=== PATIENT | female | born 1995 | race Caucasian/White ===

== ENCOUNTER 2019-03-08 21:33 | Emergency (ER) | payer OTHER ==
[2019-03-08 22:01] VITALS: BP 121/66
--- NOTE | 2019-03-08 22:25 | UC ---
Abdominal Pain Female HPI - HPI Summary HPI Summary: 2 DAYS OF WORSENING DULL UPPER ABDOMINAL PAIN. HAS A HISTORY OF ULCERATIVE COLITIS AND IS CURRENTLY IN AN ACUTE FLARE. STARTED BUDESONIDE 2 DAYS AGO. NO BLOODY DIARRHEA. PATIENT IS VISIBLY UNCOMFORTABLE. DENIES ANY FEVER OR VOMITING BUT DOES HAVE SOME INTERMITTENT NAUSEA. STATES THAT WHEN SHE EATS SHE FEELS BETTER FOR A VERY SHORT PERIOD OF TIME BUT THEN THE PAIN QUICKLY RETURNS. IS FOLLOWED BY DR. DEANA OLIVAS WITH GI AT [place]. - History of Current Complaint Chief Complaint: UCAbdominalPain Stated Complaint: STOMACH ACHE Time Seen by Provider: 03/08/19 21:48 Hx Obtained From: Patient Hx Last Menstrual Period: 3 weeks ago Onset/Duration: Gradual Onset, Lasting Days, Still Present Timing: Constant Severity Initially: Mild Severity Currently: Moderate Pain Intensity: 7 Pain Scale Used: 0-10 Numeric Location: Diffuse Radiates: No Character: Dull Aggravating Factor(s): Nothing Alleviating Factor(s): Nothing Associated Signs and Symptoms: Positive: Decreased Appetite, Nausea, Diarrhea. Negative: Fever, Back Pain, Blood in Stool, Urinary Symptoms, Vomiting Allergies/Adverse Reactions: Allergies Allergy/AdvReac Type Severity Reaction Status Date / Time No Known Allergies Allergy Verified 03/08/19 22:01 Home Medications: Home Medications Budesonide CAP(NF) 9 mg PO DAILY 03/08/19 [History Confirmed 03/08/19] Mesalamine (NF) [Apriso (NF)] 0.375 gm PO TID 03/08/19 [History Confirmed ] PMH/Surg Hx/FS Hx/Imm Hx Other GI/ History: ULCERATIVE COLITIS - Surgical History Surgery Procedure, Year, and Place: wisdom teeth - Social History Alcohol Use: Occasionally Substance Use Type: None Smoking Status (MU): Never Smoked Tobacco Review of Systems All Other Systems Reviewed And Are Negative: Yes Constitutional: Positive: Negative Skin: Positive: Negative Respiratory: Positive: Negative Cardiovascular: Positive: Negative Gastrointestinal: Positive: Abdominal Pain, Diarrhea, Nausea Genitourinary: Positive: Negative Physical Exam Triage Information Reviewed: Yes Appearance: Pain Distress - MODERATE, Thin Vital Signs: Initial Vital Signs Temp 100.4 F 03/08/19 21:51 Pulse 123 03/08/19 21:51 Resp 17 03/08/19 21:51 BP 121/66 03/08/19 21:51 Pulse Ox 100 03/08/19 21:51 Vital Signs Reviewed: Yes Eyes: Positive: Conjunctiva Clear ENT: Positive: Hearing grossly normal Neck: Positive: Supple Respiratory Exam: Normal Cardiovascular: Positive: Tachycardia Abdomen Description: Positive: Nontender, Soft. Negative: CVA Tenderness (R), CVA Tenderness (L), Distended, Guarding Bowel Sounds: Positive: Present Musculoskeletal: Positive: No Edema Neurological: Positive: Alert Psychological: Positive: Age Appropriate Behavior Skin: Negative: Rashes Abd Pain Female Course/Dx - Course Course Of Treatment: PATIENT PRESENTS WITH WORSENING DULL UPPER ABDOMINAL PAIN IN THE SETTING OF AN ACUTE FLARE OF ULCERATIVE COLITIS. PATIENT IS VISIBLY UNCOMFORTABLE THE UC. IS TACHYCARDIC WITH A LOW GRADE TEMP. SHE REQUIRES A HIGHER LEVEL OF CARE THAN WHAT IS AVAILABLE HERE. [place] [facility] [place] [facility]. PT OFFERED TRANSPORT TO THE ED BY AMBULANCE BUT DECLINES. ADVISED THAT BY NOT TRAVELING IN A MONITORED SETTING SHE COULD BE RISKING WORSENING OF HER CONDITION THAT COULD POSE A THREAT TO HER LIFE, HEALTH AND MEDICAL SAFETY. SHE VERBALIZES UNDERSTANDING AND CONTINUES TO DECLINE AMBULANCE TRANSFER. - Differential Dx/Diagnosis Provider Diagnosis: Upper abdominal pain Discharge - Sign-Out/Discharge Documenting (check all that apply): Patient Departure All imaging exams completed and their final reports reviewed: No Studies - Discharge Plan Condition: Stable Disposition: TRANS HIGHER L OF CARE FAC Patient Education Materials: Ulcerative Colitis (ED), Abdominal Pain (ED) Referrals: Mari Mead MD [Primary Care Provider] - If Needed Deana Olivas MD [Medical Doctor] - 1 Day Additional Instructions: GO DIRECT[place] [facility] [place] FOR FURTHER EVALUATION. YOU HAVE DECLINED TRANSFER TO THE ED BY AMBULANCE. BE ADVISED THAT BY NOT TRAVELING IN A MONITORED SETTING YOU COULD BE RISKING WORSENING OF YOUR CONDITION THAT COULD POSE A THREAT TO YOUR LIFE, HEALTH AND MEDICAL SAFETY. - Billing Disposition and Condition Condition: STABLE Disposition: Trans Higher Lvl of Care Fac
== END 2019-03-08 22:27 | disposition short-term general hospital (02) ==
LOC: UCEAST 21:33
DX: R10.10 Upper abdominal pain, unspecified (principal)
CPT/HCPCS: 99203; G0463

== ENCOUNTER 2019-03-08 22:39 | Inpatient (IN) | payer OTHER ==
[2019-03-09] MEDS ORDERED: Morphine 4 MG/ML VIAL (1 ml) 4 MG/ML VIAL IV ONE (02:01)
[2019-03-09] MEDS ORDERED: NS 0.9% 1000 ML** 1,000 ML IV ONE (02:01)
[2019-03-09] MEDS ORDERED: Metoclopramide IV* 5 MG/ML 2 ML VIAL IV SLOW PU ONE (02:02)
[2019-03-09] MEDS ORDERED: Pantoprazole IV* 40 MG IV ONE (02:02)
[2019-03-09 02:19] LABS: Urine Appearance Cloudy; Urine Bacteria Absent (Absent); Urine Bilirubin Negative (Negative); Urine Blood Negative (Negative); Urine Color Yellow; Urine Glucose Negative (Negative); Urine Ketones 1+ (Negative); Urine Nitrite Negative (Negative); Urine Protein Negative (Negative); Urine Red Blood Cell Absent (Absent); Urine Specific Gravity 1.014 (1.010-1.030); Urine Squamous Epithelial Cell Present (Absent); Urine Urobilinogen Negative (Negative); Urine White Blood Cell 3+(>20/hpf) (Absent)
[2019-03-09 02:30] LABS: ABS Basophils 0.1 10^3/ul (0-0.2); ABS Eosinophils 0.4 10^3/ul (0-0.6); ABS Lymphocytes 2.2 10^3/ul (1.0-4.8); ABS Monocytes 1.4 10^3/ul (0-0.8); ABS Neutrophils 8.7 10^3/ul (1.5-7.7); Hematocrit 36 % (35-47); Hemoglobin 11.8 g/dL (12.0-16.0); Lymphocyte % 17.3 %; Mean Corpuscular HGB Conc 33 g/dL (31-36); Mean Corpuscular Hemoglobin 27 pg (27-31); Mean Corpuscular Volume 83 fL (80-97); Mean Platelet Volume 6.6 fL (7.4-10.4); Platelet Count 496 10^3/uL (150-450); Red Blood Count 4.32 10^6 /uL (3.70-4.87); Red Cell Distribution Width 13 % (10-15); White Blood Count 12.8 10^3/uL (3.5-10.8)
[2019-03-09 02:42] LABS: ALT 9 U/L (7-52); AST 12 U/L (13-39); Albumin/Globulin Ratio 1.3 (1-3); Alkaline Phosphatase 84 U/L (34-104); Anion Gap 9 mmol/L (2-11); BUN/Creatinine Ratio 10.2 (8-20); Blood Urea Nitrogen 6 mg/dL (6-24); C Reactive Protein 7.52 mg/L (<8.01); CO2 Carbon Dioxide 23 mmol/L (22-32); Calcium 9.2 mg/dL (8.6-10.3); Chloride 104 mmol/L (101-111); EGFR African American 151.5 (>60); EGFR Non-African American 125.2 (>60); Globulin 3.2 g/dL (2-4); Glucose 123 mg/dL (70-100); Magnesium 2.1 mg/dL (1.9-2.7); Potassium 3.7 mmol/L (3.5-5.0); Sodium 136 mmol/L (135-145); Total Protein 7.2 g/dL (6.4-8.9)
[2019-03-09] MEDS ORDERED: Iohexol 300* (CONTRAST) 10 ML SDV IV ONE (02:45)
[2019-03-09 02:49] LABS: HCG Pregnancy < 0.60 mIU/mL
[2019-03-09 04:09] LABS: Amylase 156 U/L (29-103)
[2019-03-09] MEDS ORDERED: Morphine INJ* 2 MG/ML 1 ML SYRINGE (TWO MG - NEW SYRINGE VERSION) IV PRN (05:30)
[2019-03-09] MEDS ORDERED: Ondansetron INJ* 2 MG/ML VIAL IV PRN (05:30)
[2019-03-09 05:49] LABS: Triglycerides 42 mg/dL
--- NOTE | 2019-03-09 06:13 | ED ---
Abdominal Pain/Female - HPI Summary HPI Summary: Patient is a 23 y/o F w/ PMHx of ulcerative colitis presenting to ED with complaints of epigastric pain for the past two days. She states that she had a flair-up of her ulcerative colitis this past week. She was evaluated by Dr. Deana Lockett at [facility], who prescribed her mesalamine to take for a month. She notes that she had previously taken prednisone for her ulcerative colitis. She is concerned that the mesalamine is causing her present abdominal pain. She notes some episodes of diarrhea with blood but denies fever. Intermittent nausea is endorsed. Patient denies PSHx. On triage, pain is rated 7/10, nothing is noted to aggravate/alleviate Sx. Home medications and allergies are reviewed. - History of Current Complaint Chief Complaint: EDAbdPain Stated Complaint: ABD PAIN PER PT Time Seen by Provider: 03/09/19 01:46 Hx Obtained From: Patient Hx Last Menstrual Period: 3 weeks ago Onset/Duration: Lasting Days - TWO, Still Present Timing: Days - TWO Severity Currently: Severe Pain Intensity: 7 Pain Scale Used: 0-10 Numeric Location: Epigastric Aggravating Factor(s): Nothing Alleviating Factor(s): Nothing Associated Signs and Symptoms: Positive: Nausea, Diarrhea. Negative: Fever Allergies/Adverse Reactions: Allergies Allergy/AdvReac Type Severity Reaction Status Date / Time No Known Allergies Allergy Verified 03/08/19 22:42 PMH/Surg Hx/FS Hx/Imm Hx Endocrine/Hematology History: Denies: Hx Diabetes, Hx Thyroid Disease Cardiovascular History: Denies: Hx Hypertension Respiratory History: Denies: Hx Asthma, Hx Chronic Obstructive Pulmonary Disease (COPD) GI History: Reports: Other GI Disorders - ULCERATIVE COLITIS - Surgical History Surgery Procedure, Year, and Place: wisdom teeth - Immunization History Immunizations Up to Date: Yes Infectious Disease History: No Infectious Disease History: Reports: Traveled Outside the [place] in Last 30 Days Denies: Hx Hepatitis, Hx Human Immunodeficiency Virus (HIV) - Family History Known Family History: Negative: Diabetes - Social History Alcohol Use: Occasionally Substance Use Type: Reports: None Smoking Status (MU): Never Smoked Tobacco Review of Systems Negative: Fever Positive: Abdominal Pain, Diarrhea, Nausea All Other Systems Reviewed And Are Negative: Yes Physical Exam - Summary Physical Exam Summary: VITAL SIGNS: Reviewed. GENERAL: Patient is a well-developed and nourished FEMALE who is lying comfortable in the stretcher. Patient is not in any acute respiratory distress. HEAD AND FACE: No signs of trauma. No ecchymosis, hematomas or skull depressions. No sinus tenderness. EYES: PERRLA, EOMI x 2, No injected conjunctiva, no nystagmus. EARS: Hearing grossly intact. Ear canals and tympanic membranes are within normal limits. MOUTH: Oropharynx within normal limits. NECK: Supple, trachea is midline, no adenopathy, no JVD, no carotid bruit, no c- spine tenderness, neck with full ROM CHEST: Symmetric, no tenderness at palpation LUNGS: Clear to auscultation bilaterally. No wheezing or crackles. CVS: Regular rate and rhythm, S1 and S2 present, no murmurs or gallops appreciated. ABDOMEN: Soft, non-tender. No signs of distention. No rebound no guarding, and no masses palpated. Bowel sounds are hyperactive. EXTREMITIES: FROM in all major joints, no edema, no cyanosis or clubbing. NEURO: Alert and oriented x 3. No acute neurological deficits. Speech is normal and follows commands. SKIN: Dry and warm Triage Information Reviewed: Yes Vital Signs On Initial Exam: Initial Vitals Temp Pulse Resp BP Pulse Ox 99 F 119 16 118/75 100 03/08/19 22:40 03/08/19 22:40 03/08/19 22:40 03/08/19 22:40 03/08/19 22:40 Vital Signs Reviewed: Yes Diagnostics - Vital Signs Vital Signs Temp Pulse Resp BP Pulse Ox 03/09/19 05:05 98 125/70 97 03/09/19 05:00 96 97 03/09/19 04:35 102 119/63 99 03/09/19 04:05 98 112/57 99 03/09/19 04:00 127 97 03/09/19 03:35 99 115/54 99 03/09/19 03:05 105 128/75 100 03/09/19 02:19 16 03/09/19 00:55 99 F 100 22 121/66 100 03/08/19 22:40 99 F 119 16 118/75 100 - Laboratory Lab Results: Lab Results 03/09/19 03/09/19 03/09/19 Range/Units 01:40 02:18 02:18 WBC 12.8 H (3.5-10.8) 10^3/uL RBC 4.32 (3.70-4.87) 10^6 /uL Hgb 11.8 L (12.0-16.0) g/dL Hct 36 (35-47) % MCV 83 (80-97) fL MCH 27 (27-31) pg MCHC 33 (31-36) g/dL RDW 13 (10-15) % Plt Count 496 H (150-450) 10^3/uL MPV 6.6 L (7.4-10.4) fL Neut % (Auto) 68.4 % Lymph % (Auto) 17.3 % [place] % (Auto) 10.7 % Eos % (Auto) 3.0 % Baso % (Auto) 0.6 % Absolute Neuts (auto) 8.7 H (1.5-7.7) 10^3/ul Absolute Lymphs (auto) 2.2 (1.0-4.8) 10^3/ul Absolute Monos (auto) 1.4 H (0-0.8) 10^3/ul Absolute Eos (auto) 0.4 (0-0.6) 10^3/ul Absolute Basos (auto) 0.1 (0-0.2) 10^3/ul Absolute Nucleated RBC 0.0 10^3/ul Nucleated RBC % 0.0 Sodium 136 (135-145) mmol/L Potassium 3.7 (3.5-5.0) mmol/L Chloride 104 (101-111) mmol/L Carbon Dioxide 23 (22-32) mmol/L Anion Gap 9 (2-11) mmol/L BUN 6 (6-24) mg/dL Creatinine 0.59 (0.51-0.95) mg/dL Est GFR ( Amer) 151.5 (>60) Est GFR (Non-Af Amer) 125.2 (>60) BUN/Creatinine Ratio 10.2 (8-20) Glucose 123 H (70-100) mg/dL Calcium 9.2 (8.6-10.3) mg/dL Magnesium 2.1 (1.9-2.7) mg/dL Total Bilirubin 0.30 (0.2-1.0) mg/dL AST 12 L (13-39) U/L ALT 9 (7-52) U/L Alkaline Phosphatase 84 (34-104) U/L C-Reactive Protein 7.52 (<8.01) mg/L Total Protein 7.2 (6.4-8.9) g/dL Albumin 4.0 (3.2-5.2) g/dL Globulin 3.2 (2-4) g/dL Albumin/Globulin Ratio 1.3 (1-3) Triglycerides 42 mg/dL Amylase 156 H (29-103) U/L Lipase 949 H (11.0-82.0) U/L Beta HCG, Quant < 0.60 mIU/mL Urine Color Yellow Urine Appearance Cloudy Urine pH 5.0 (5-9) Ur Specific [place] 1.014 (1.010-1.030) Urine Protein Negative (Negative) Urine Ketones 1+ A (Negative) Urine Blood Negative (Negative) Urine Nitrate Negative (Negative) Urine Bilirubin Negative (Negative) Urine Urobilinogen Negative (Negative) Ur Leukocyte Esterase 3+ A (Negative) Urine WBC (Auto) 3+(>20/hpf) A (Absent) Urine RBC (Auto) Absent (Absent) Ur Squamous Epith Cells Present A (Absent) Urine Bacteria Absent (Absent) Urine Glucose Negative (Negative) Result Diagrams: 03/09/19 02:18 03/09/19 02:18 Lab Statement: Any lab studies that have been ordered have been reviewed, and results considered in the medical decision making process. - CT ABD/PEL CT CT Interpretation Completed By: Radiologist Summary of CT Findings: IMPRESSION: 1. Nonspecific findings in the abdomen. Motion artifact in the area the. pancreas which causes blurring of the pancreatic margins with some increase. density to the peripancreatic soft tissues. No walled off fluid collection is. seen. This could represent early pancreatitis. Suggest obtaining a lipase level. for correlation. 2. The distal transverse colon and proximal descending colon are collapsed with some thickening of the wall. This is a nonspecific finding but could represent. an early colitis. There is however no significant mesenteric inflammation. The. colon proximal and distal to this site are normal. 3. The appendix is visualized and is normal in appearance. 4. The uterus is displaced to the right of midline. No adnexal mass is. observed. No significant fluid collection within the pelvis is noted. THIS REPORT WAS REVIEWED BY DR. PEREZ Abdominal Pain Fem Course/Dx - Course Course Of Treatment: Patient is a 23 y/o F w/ PMHx of ulcerative colitis presenting to ED with complaints of epigastric pain for the past two days. She states that she had a flair-up of her ulcerative colitis this past week. She was evaluated by Dr. Deana Lokcett at [facility], who prescribed her mesalamine to take for a month. She notes that she had previously taken prednisone for her ulcerative colitis. She is concerned that the mesalamine is causing her present abdominal pain. She notes some episodes of diarrhea with blood but denies fever. Intermittent nausea is endorsed. Patient denies PSHx. On physical exam, hyperactive bowel sounds are noted. Labs showed WBC 12.8, Hgb 11.8, Plt count 496, MPV 6.6, absolute neuts 8.7, absolute monos 1.4, glucose 123, AST 12, amylase 156, lipase 949, triglycerides 42, beta HCG < 0.60. UA showed 1+ ketones , 3+ leukocyte and WBC, squamous epith cells present. CT ABD/PEL IMPRESSION: 1. Nonspecific findings in the abdomen. Motion artifact in the area the. pancreas which causes blurring of the pancreatic margins with some increase. density to the peripancreatic soft tissues. No walled off fluid collection is. seen. This could represent early pancreatitis. Suggest obtaining a lipase level. for correlation. 2. The distal transverse colon and proximal descending colon are collapsed with some thickening of the wall. This is a nonspecific finding but could represent. an early colitis. There is however no significant mesenteric inflammation. The. colon proximal and distal to this site are normal. 3. The appendix is visualized and is normal in appearance. 4. The uterus is displaced to the right of midline. No adnexal mass is. observed. No significant fluid collection within the pelvis is noted. During ED course, patient received fluids, protonix 40 mg IV, morphine 4 mg IV and reglan 10 mg IV. 0359 - Patient's case was discussed with Dr. Malcolm, Dr. Malcolm accepts for admission. - Diagnoses Provider Diagnoses: Acute pancreatitis - Provider Notifications Discussed Care Of Patient With: Daisy Malcolm Time Discussed With Above Provider: 03:59 Instructed by Provider To: Other - 0359 - Patient's case was discussed with Dr. Malcolm, Dr. Malcolm accepts for admission. Discharge - Sign-Out/Discharge Documenting (check all that apply): Patient Departure - admit All imaging exams completed and their final reports reviewed: Yes Patient Received Moderate/Deep Sedation with Procedure: No - Discharge Plan Condition: Fair Disposition: ADMITTED TO [facility] - Attestation Statements Document Initiated by Scribe: Yes Documenting Scribe: WANDA WEBER Provider For Whom Scribe is Documenting (Include Credential): JOHNSON PEREZ MD Scribe Attestation: IWANDA, scribed for JOHNSON PEREZ MD on 03/09/19 at 0617. Status of Scribe Document: Ready
--- NOTE | 2019-03-09 09:31 | HP ---
CC: Dr. Mead; Dr. Lockett; Dr. Jones; Dr. Rodney.* HISTORY AND PHYSICAL: DATE OF ADMISSION: 03/09/19 PRIMARY CARE PROVIDER: Dr. Mead. DOUBLE END [facility]ONER OPERATOR: Dr. Lockett from [facility]. CHIEF COMPLAINT: Epigastric pain. HISTORY OF PRESENT ILLNESS: Rina Brownlee is a 23-year-old female with history of ulcerative colitis, who has had recent exacerbation, during which she stated that she lost 10 pounds and was started on budesonide within the past week. The patient stated that in the past 2 days she has been having epigastric pain that is different from her chronic ulcerative colitis pain. She denies any nausea or vomiting. Her bowels had been normalizing since she has been on budesonide, but before she started budesonide she had been having 3 to 4 loose bowel movements a day with some blood in them. The patient's evaluation in the ED yielded lipase of nearly [address] showing an abnormality questionable for pancreatitis. She is going to be placed on observation with the diagnosis of acute pancreatitis. PAST MEDICAL HISTORY: History of ulcerative colitis, diagnosed in August 2018. The patient has been on mesalamine since then, budesonide for the past several days. MEDICATIONS AT HOME: Include: 1. Mesalamine 0.375 mg 3 times a day. 2. Budesonide 9 mg p.o. daily. ALLERGIES: No known drug allergies. FAMILY HISTORY: Positive for colon cancer in maternal grandmother. Father and mother are healthy. SOCIAL HISTORY: The patient lives with her boyfriend. Her surrogate is her mother who lives in [place], [place]. Arielle Moran, home phone number is . The patient denies any tobacco, alcohol, or drug use. REVIEW OF SYSTEMS: Please see history of present illness. All the remaining 12 systems were reviewed with the patient and were otherwise negative. PHYSICAL EXAMINATION GENERAL: The patient is a pleasant 23-year-old female who is in no acute distress. Alert, awake, and oriented x3. VITAL SIGNS: Blood pressure 112/57, heart rate of 98 and regular, respiratory rate 16, oxygen saturation 99% on room air, and temperature 99.0. HEENT: Head: Atraumatic, normocephalic. Eyes: Pupils are equal, reactive to light and accommodation. Oropharynx: Clear. Mucosa moist. NECK: Supple. No JVD. No bruits bilaterally. RESPIRATORY: Clear to auscultation bilaterally. CARDIOVASCULAR: Regular rate and rhythm. No murmur. ABDOMEN: Soft, nontender. Bowel sounds are present in all 4 quadrants. EXTREMITIES: No edema. Pulses are +2 bilaterally. No clubbing or cyanosis. NEURO EVALUATION: Speech clear. Cranial nerves II through XII grossly intact. Motor strength is 5/5 bilaterally. SKIN: No ecchymotic areas or rashes noted. DIAGNOSTIC STUDIES/LAB DATA: Sodium of 136, potassium 3.7, chloride 104, carbon dioxide 23, BUN 16, creatinine 0.59. Liver function test unremarkable and amylase of 156 and lipase of 949. Beta HCG levels undetectable. Triglycerides are pending. CBC: White blood cell count of 2.8, hemoglobin 11.9 , hematocrit 36, and platelets of 496. The patient's CT of abdomen and pelvis, impression: "No specific findings of the abdomen. Motion artifact in the area of pancreas, which causes blurring of the pancreatic margins with some increased density of the peripancreatic soft tissues. No walled-off fluid collection is seen. This could represent early pancreatitis. Suggest obtaining a lipase level for correlation. The distal transverse colon and proximal distending colon are collapsed with some thickening of the wall. This is a nonspecific finding, but could represent early colitis. There is, however, no significant mesenteric inflammation. The colon more proximally and distally to this side are normal. The appendix is visualized and is normal in appearance. to the right of midline. No adnexal mass is observed. No suggestion of fluid collection within the pelvis noted." ASSESSMENT AND PLAN: 1. Acute pancreatitis in the patient with history of ulcerative colitis. For the time being, the patient's p.o. medications are going to be held and she is going to be treated conservatively with ice chips only diet, intravenous fluids , and bowel rest. I already spoke with Dr. Rodney who will refer the patient to Dr. Jones during the day to see the patient in consultation. To further evaluate the etiology for pancreatitis, triglyceride level is going to be obtained and we will obtain a gallbladder ultrasound to evaluate for sludge or non-CT visualized stone. 2. For DVT prophylaxis, the patient is going to be placed on ambulation and she is otherwise low risk. TIME SPENT: Approximately 55 minutes were spent on admission of this patient, more than half of that time was spent [id number] with the patient during the interview and physical exam. [id number]/[facility] #: [id number] MAHESH
[2019-03-09] MEDS: Famotidine IV* 10 MG/ML 2 ML (20 mg) IV SLOW PU SCH ×2 (10:09→22:54)
[2019-03-09] MEDS: D5LR 20 MEQ KCL 1000 ML BAG* 1,000 ML IV SCH (16:47)
[2019-03-09] MEDS: Acetaminophen TAB* 325 MG PO PRN ×2 (16:47→23:28)
--- NOTE | 2019-03-09 18:19 | CONS ---
CC: Dr. Malcolm; Dr Deana Lockett at [facility] * CONSULTATION REPORT: DATE OF CONSULT: 03/09/19 REQUESTING PHYSICIAN: Dr. Malcolm. HISTORY OF PRESENT ILLNESS: Ms. Brownlee is a very pleasant 23-year-old female who was diagnosed with ulcerative pancolitis in the fall of last year. She was originally started on prednisone and mesalamine and did do well. She was weaned off the prednisone and only continued on mesalamine until approximately 3 to 4 days ago. She has been having a flare in the past week and had seen Dr. Lockett who started her on budesonide. Approximately 3 days later, she developed a severe abdominal pain, was located in the epigastric area. She felt that this was much different than her typical ulcerative colitis pain. She did have slight nausea, no vomiting. Her UC symptoms have actually been getting a little bit better on the budesonide. The bleeding had resolved. Given the severity of the pain and the change in its quality and nature, she did present to the emergency room. She denied any fevers or chills. She did have a CT, which showed possible pancreatitis and blood work, which revealed lipase of approximately 1000. She was admitted to the hospital with a diagnosis of pancreatitis. Currently, she is feeling better, but not 100% better. She states she feels about 50% better at this time. PAST MEDICAL HISTORY: Ulcerative colitis diagnosed the end of 2018. MEDICATIONS: Includes: 1. Apriso 0.375 mg 3 times a day. 2. Budesonide 9 mg a day. ALLERGIES: None. FAMILY HISTORY: Grandmother with colorectal cancer. SOCIAL HISTORY: She denies any tobacco, alcohol or IV drugs. REVIEW OF SYSTEMS: A 12-systems were reviewed with the patient and other than that mentioned in the HPI were unremarkable. PHYSICAL EXAM: Temperature is 97.6, blood pressure is 114/56, pulse of 93, respiratory rate of 16, and O2 sats of 100% on room air. General: Well appearing young female in no apparent distress, appears her stated age. Alert, oriented, pleasant, fluent. HEENT: Mucous membranes are moist without lesions , ulcers or exudate. Neck is supple. Trachea is midline. Dentition is intact. No scleral icterus. No pale conjunctivae. Heart: Regular rate and rhythm. No murmurs. Lungs are clear to auscultation bilaterally. No wheezes, rales, or rhonchi. Abdomen: Positive bowel sounds. Very mild epigastric tenderness. No rebound, no guarding, no masses were felt. Skin: Warm and dry. DIAGNOSTIC STUDIES/LAB DATA: Of note, white is 12.8, hemoglobin is 11.8, platelet count of 496. Chemistry shows glucose of 123. AST is 12, amylase is 156, lipase is 949. She has a gallbladder ultrasound which shows no cholelithiasis or biliary ductal dilatation. She also has a CT, which shows increased density in the peripancreatic soft tissues, potentially representing early pancreatitis. ASSESSMENT AND PLAN: This is a very pleasant 23-year-old female with and a diagnosis of ulcerative colitis. The patient's with are at increased risk of ulcerative colitis more often then not related to their medications. Mesalamine has been implicated in the past; however, she has been on it since July or August of 2017. I doubt that the causative factor. Budesonide also can cause as a very low likelihood, but there are reports of pancreatitis induced budesonide. Given the temporal relationship, I think that is the most likely cause. She denies any alcohol, does not appear to be any stones. We are checking her triglyceride just to be certain she denies any trauma. Actually, her triglycerides were normal. There is no family history of pancreatitis, this could be a viral pancreatitis. I would recommend recheck a serum IgG4 just to be certain. If she continues to improve, she can likely be discharged to home tomorrow. She should follow with her regular [facility] spout tender to discuss some other medication to be used for her ulcerative colitis. [id number]/[facility] #: [id number] [facility]
--- NOTE | 2019-03-09 19:41 | PN ---
Subjective Date of Service: 03/09/19 Interval History: Patient reports her pain is far improved this morning per nursing. Diet advanced to clear liquid, patient reports some increased upper abdominal pain after eating at time of evaluation. Denies fever/chills, chest pain, difficulty breathing, nausea/vomiting. Had a bowel movement that was non-bloody, but was mucous-filled. Objective Active Medications: Acetaminophen (Tylenol Tab*) 650 mg PO Q6H PRN PRN Reason: PAIN Last Admin: 03/09/19 16:47 Dose: 650 mg Famotidine (Pepcid Iv*) 20 mg IV SLOW PU BID [facility] Last Admin: 03/09/19 10:09 Dose: 20 mg Potassium Cl/Dextrose/Lact Ringer's (D5lr 20 Meq Kcl 1000 Ml Bag*) 1,000 mls @ 100 mls/hr IV PER RATE [facility] Last Admin: 03/09/19 16:47 Dose: 100 mls/hr Morphine Sulfate (Morphine Inj (Syringe))*) 1 mg IV Q4H PRN PRN Reason: PAIN - MILD Ondansetron HCl (Zofran Inj*) 4 mg IV Q4H PRN PRN Reason: NAUSEA/VOMITING Oxycodone HCl (Roxycodone Tab*) 5 mg PO Q4H PRN PRN Reason: PAIN - MODERATE Vital Signs - 8 hr 03/09/19 15:09 Temperature 98.7 F Pulse Rate 94 Respiratory 16 Rate Blood Pressure 110/68 (mmHg) O2 Sat by Pulse 99 Oximetry Oxygen Devices in Use Now: None Appearance: Thin, young white female laying in hospital bed appearing in NAD Eyes: No Scleral Icterus, PERRLA Ears/Nose/Mouth/Throat: Mucous Membranes Moist Neck: NL Appearance and Movements; NL JVP Respiratory: Symmetrical Chest Expansion and Respiratory Effort, Clear to Auscultation Cardiovascular: NL Sounds; No Murmurs; No JVD, RRR Abdominal: No Hepatosplenomegaly, - - normoactive BS x4 quadrants; no tenderness with palpation superficially or deeply; abd soft, nontender, nondistended Extremities: No Edema, No Clubbing, Cyanosis Skin: No Rash or Ulcers Neurological: Alert and Oriented x 3, NL Muscle Strength and Tone Result Diagrams: 03/09/19 02:18 03/09/19 02:18 Additional Lab and Data: Lab Results 06/03/09/19 03/09/19 Range/Units 01:40 02:18 02:18 WBC 12.8 H (3.5-10.8) 10^3/uL RBC 4.32 (3.70-4.87) 10^6 /uL Hgb 11.8 L (12.0-16.0) g/dL Hct 36 (35-47) % MCV 83 (80-97) fL MCH 27 (27-31) pg MCHC 33 (31-36) g/dL RDW 13 (10-15) % Plt Count 496 H (150-450) 10^3/uL MPV 6.6 L (7.4-10.4) fL Neut % (Auto) 68.4 % Lymph % (Auto) 17.3 % [place] % (Auto) 10.7 % Eos % (Auto) 3.0 % Baso % (Auto) 0.6 % Absolute Neuts (auto) 8.7 H (1.5-7.7) 10^3/ul Absolute Lymphs (auto) 2.2 (1.0-4.8) 10^3/ul Absolute Monos (auto) 1.4 H (0-0.8) 10^3/ul Absolute Eos (auto) 0.4 (0-0.6) 10^3/ul Absolute Basos (auto) 0.1 (0-0.2) 10^3/ul Absolute Nucleated RBC 0.0 10^3/ul Nucleated RBC % 0.0 Sodium 136 (135-145) mmol/L Potassium 3.7 (3.5-5.0) mmol/L Chloride 104 (101-111) mmol/L Carbon Dioxide 23 (22-32) mmol/L Anion Gap 9 (2-11) mmol/L BUN 6 (6-24) mg/dL Creatinine 0.59 (0.51-0.95) mg/dL Est GFR ( Amer) 151.5 (>60) Est GFR (Non-Af Amer) 125.2 (>60) BUN/Creatinine Ratio 10.2 (8-20) Glucose 123 H (70-100) mg/dL Calcium 9.2 (8.6-10.3) mg/dL Magnesium 2.1 (1.9-2.7) mg/dL Total Bilirubin 0.30 (0.2-1.0) mg/dL AST 12 L (13-39) U/L ALT 9 (7-52) U/L Alkaline Phosphatase 84 (34-104) U/L C-Reactive Protein 7.52 (<8.01) mg/L Total Protein 7.2 (6.4-8.9) g/dL Albumin 4.0 (3.2-5.2) g/dL Globulin 3.2 (2-4) g/dL Albumin/Globulin Ratio 1.3 (1-3) Triglycerides 42 mg/dL Amylase 156 H (29-103) U/L Lipase 949 H (11.0-82.0) U/L Beta HCG, Quant < 0.60 mIU/mL Urine Color Yellow Urine Appearance Cloudy Urine pH 5.0 (5-9) Ur Specific [place] 1.014 (1.010-1.030) Urine Protein Negative (Negative) Urine Ketones 1+ A (Negative) Urine Blood Negative (Negative) Urine Nitrate Negative (Negative) Urine Bilirubin Negative (Negative) Urine Urobilinogen Negative (Negative) Ur Leukocyte Esterase 3+ A (Negative) Urine WBC (Auto) 3+(>20/hpf) A (Absent) Urine RBC (Auto) Absent (Absent) Ur Squamous Epith Cells Present A (Absent) Urine Bacteria Absent (Absent) Urine Glucose Negative (Negative) Assess/Plan/Problems-Billing Assessment: 23 yo female with PMHx ulcerative colitis reports to the ED c/o abdominal pain and found to have acute pancreatitis. - Patient Problems (1) Acute pancreatitis Code(s): K85.90 - ACUTE PANCREATITIS WITHOUT NECROSIS OR INFECTION, UNSP SNOMED Code(s): 801883782 Comment: -CT abdomen with increased density of peripancreatic tissue; lipase of 949 at admission -gallbladder ultrasound today without gallstones or biliary duct dilation -Dr. Vasquez evaluated patient today and believes it's possible that acute pancreatitis was caused by budesonide which patient recently started taking; he ordered IgG to investigate viral etiology; recommends f/u with her normal family sociologist after discharge but continued monitoring overnight tonight -triglycerides wnl -advanced to clear liquid diet today with increased abd pain after meal, will keep clear liquid diet for now and reassess tomorrow -abd pain far improved per patient, no tenderness to palpation on abd exam (2) Ulcerative colitis Code(s): K51.90 - ULCERATIVE COLITIS, UNSPECIFIED, WITHOUT COMPLICATIONS SNOMED Code(s): 66326052 Comment: -restarting home mesalamine as this is low likelihood of causing pancreatitis per Dr. Jones -holding home budesonide given possibility of pancreatitis cause (3) DVT prophylaxis Code(s): Z29.9 - ENCOUNTER FOR PROPHYLACTIC MEASURES, UNSPECIFIED SNOMED Code( s): 360136136 Comment: -ambulation, chemical ppx not indicated (4) Full code status Code(s): Z78.9 - OTHER SPECIFIED HEALTH STATUS SNOMED Code(s): 357718498
[2019-03-10] MEDS: D5LR 20 MEQ KCL 1000 ML BAG* 1,000 ML IV SCH ×3 (03:09→23:04)
[2019-03-10] MEDS: MESALAMINE 0.375 GM PO SCH ×2 (04:10→07:24)
[2019-03-10 07:09] LABS: ABS Eosinophils 0.6 10^3/ul (0-0.6); ABS Lymphocytes 1.2 10^3/ul (1.0-4.8); ABS Monocytes 1.4 10^3/ul (0-0.8); ABS Neutrophils 8.1 10^3/ul (1.5-7.7); Eosinophil % 4.9 %; Hematocrit 34 % (35-47); Hemoglobin 11.4 g/dL (12.0-16.0); Mean Corpuscular HGB Conc 34 g/dL (31-36); Mean Corpuscular Hemoglobin 28 pg (27-31); Mean Corpuscular Volume 83 fL (80-97); Mean Platelet Volume 7.7 fL (7.4-10.4); Nucleated Red Blood Cells % 0.1; Platelet Count 333 10^3/uL (150-450); Red Blood Count 4.07 10^6 /uL (3.70-4.87); Red Cell Distribution Width 14 % (10-15); White Blood Count 11.3 10^3/uL (3.5-10.8)
[2019-03-10] MEDS: Acetaminophen TAB* 325 MG PO PRN (07:25)
[2019-03-10] MEDS: Famotidine IV* 10 MG/ML 2 ML (20 mg) IV SLOW PU SCH (07:26)
[2019-03-10 07:36] LABS: Albumin 3.7 g/dL (3.2-5.2); Albumin/Globulin Ratio 1.3 (1-3); BUN/Creatinine Ratio 6.9 (8-20); Calcium 8.9 mg/dL (8.6-10.3); EGFR African American 154.5 (>60); EGFR Non-African American 127.7 (>60); Globulin 2.9 g/dL (2-4); Potassium 4.1 mmol/L (3.5-5.0); Total Bilirubin 0.4 mg/dL (0.2-1.0); Total Protein 6.6 g/dL (6.4-8.9)
[2019-03-10] MEDS: oxyCODONE TAB* 5 MG TAB PO PRN ×2 (09:39→14:30)
[2019-03-10] MEDS: PTO:Mesalamine (NF) 0.375 GM CAP PO SCH ×2 (13:02→17:39)
--- NOTE | 2019-03-10 19:01 | PN ---
Subjective Date of Service: 03/10/19 Interval History: No overnight events. Patient experienced significant pain with clears yesterday and today is mostly having ice chips. Only mild pain currently - states oxycodone has good effect. Objective Active Medications: Acetaminophen (Tylenol Tab*) 650 mg PO Q6H PRN PRN Reason: PAIN Last Admin: 03/10/19 07:25 Dose: 650 mg Famotidine (Pepcid Iv*) 20 mg IV SLOW PU BID [facility] Last Admin: 03/10/19 07:26 Dose: 20 mg Potassium Cl/Dextrose/Lact Ringer's (D5lr 20 Meq Kcl 1000 Ml Bag*) 1,000 mls @ 100 mls/hr IV PER RATE [facility] Last Admin: 03/10/19 13:02 Dose: 100 mls/hr Mesalamine (Apriso (Nf)) 0.375 gm PO TID WITH MEALS [facility] Last Admin: 03/10/19 17:39 Dose: 0.375 gm Morphine Sulfate (Morphine Inj (Syringe))*) 1 mg IV Q4H PRN PRN Reason: PAIN - MILD Ondansetron HCl (Zofran Inj*) 4 mg IV Q4H PRN PRN Reason: NAUSEA/VOMITING Last Admin: 03/10/19 14:34 Dose: 4 mg Oxycodone HCl (Roxycodone Tab*) 5 mg PO Q4H PRN PRN Reason: PAIN - MODERATE Last Admin: 03/10/19 14:30 Dose: 5 mg Vital Signs - 8 hr 03/10/19 03/10/19 03/10/19 12:04 12:29 14:30 Temperature 98.4 F Pulse Rate 61 Respiratory 18 18 16 Rate Blood Pressure 115/69 (mmHg) O2 Sat by Pulse 100 Oximetry 03/10/19 03/10/19 16:26 17:40 Temperature 98.7 F Pulse Rate 83 Respiratory 18 16 Rate Blood Pressure 104/61 (mmHg) O2 Sat by Pulse 100 Oximetry Oxygen Devices in Use Now: None Appearance: thin young woman lying in hospital bed in NAD, interactive and pleasant Ears/Nose/Mouth/Throat: Clear Oropharnyx, Mucous Membranes Moist Neck: Trachea Midline Respiratory: Symmetrical Chest Expansion and Respiratory Effort, Clear to Auscultation Cardiovascular: NL Sounds; No Murmurs; No JVD, RRR Abdominal: - - soft, nontender, nondistended, normoactive BS, no guarding or rebound Extremities: No Edema Skin: No Rash or Ulcers Neurological: Alert and Oriented x 3, NL Sensation, NL Muscle Strength and Tone Result Diagrams: 03/10/19 06:09 03/10/19 06:09 Additional Lab and Data: Lab Results 03/09/19 03/09/19 03/09/19 Range/Units 01:40 02:18 02:18 WBC 12.8 H (3.5-10.8) 10^3/uL RBC 4.32 (3.70-4.87) 10^6 /uL Hgb 11.8 L (12.0-16.0) g/dL Hct 36 (35-47) % MCV 83 (80-97) fL MCH 27 (27-31) pg MCHC 33 (31-36) g/dL RDW 13 (10-15) % Plt Count 496 H (150-450) 10^3/uL MPV 6.6 L (7.4-10.4) fL Neut % (Auto) 68.4 % Lymph % (Auto) 17.3 % [place] % (Auto) 10.7 % Eos % (Auto) 3.0 % Baso % (Auto) 0.6 % Absolute Neuts (auto) 8.7 H (1.5-7.7) 10^3/ul Absolute Lymphs (auto) 2.2 (1.0-4.8) 10^3/ul Absolute Monos (auto) 1.4 H (0-0.8) 10^3/ul Absolute Eos (auto) 0.4 (0-0.6) 10^3/ul Absolute Basos (auto) 0.1 (0-0.2) 10^3/ul Absolute Nucleated RBC 0.0 10^3/ul Nucleated RBC % 0.0 Sodium 136 (135-145) mmol/L Potassium 3.7 (3.5-5.0) mmol/L Chloride 104 (101-111) mmol/L Carbon Dioxide 23 (22-32) mmol/L Anion Gap 9 (2-11) mmol/L BUN 6 (6-24) mg/dL Creatinine 0.59 (0.51-0.95) mg/dL Est GFR ( Amer) 151.5 (>60) Est GFR (Non-Af Amer) 125.2 (>60) BUN/Creatinine Ratio 10.2 (8-20) Glucose 123 H (70-100) mg/dL Calcium 9.2 (8.6-10.3) mg/dL Magnesium 2.1 (1.9-2.7) mg/dL Total Bilirubin 0.30 (0.2-1.0) mg/dL AST 12 L (13-39) U/L ALT 9 (7-52) U/L Alkaline Phosphatase 84 (34-104) U/L C-Reactive Protein 7.52 (<8.01) mg/L Total Protein 7.2 (6.4-8.9) g/dL Albumin 4.0 (3.2-5.2) g/dL Globulin 3.2 (2-4) g/dL Albumin/Globulin Ratio 1.3 (1-3) Triglycerides 42 mg/dL Amylase 156 H (29-103) U/L Lipase 949 H (11.0-82.0) U/L Beta HCG, Quant < 0.60 mIU/mL Urine Color Yellow Urine Appearance Cloudy Urine pH 5.0 (5-9) Ur Specific [place] 1.014 (1.010-1.030) Urine Protein Negative (Negative) Urine Ketones 1+ A (Negative) Urine Blood Negative (Negative) Urine Nitrate Negative (Negative) Urine Bilirubin Negative (Negative) Urine Urobilinogen Negative (Negative) Ur Leukocyte Esterase 3+ A (Negative) Urine WBC (Auto) 3+(>20/hpf) A (Absent) Urine RBC (Auto) Absent (Absent) Ur Squamous Epith Cells Present A (Absent) Urine Bacteria Absent (Absent) Urine Glucose Negative (Negative) Microbiology and Other Data: Microbiology 03/09/19 01:40 Urine Culture - Final Urine Chata Albicans Normal [place] Assess/Plan/Problems-Billing Assessment: 23W with ulcerative colitis presents with epigastric pain, found to have acute pancreatitis possibly from recent budesonide use. - Patient Problems (1) Acute pancreatitis Comment: CT abdomen with increased density of peripancreatic tissue; lipase of 949 at admission. Gallbladder ultrasound without gallstones or biliary duct dilation. Triglycerides wnl. Thought to be from budesonide use - while rare, the chronology fits well. -advanced diet as tolerated - not able to tolerate clears today -abd pain far improved per patient, no tenderness to palpation on abd exam (2) Ulcerative colitis Current Visit: Yes Status: Acute Code(s): K51.90 - ULCERATIVE COLITIS, UNSPECIFIED, WITHOUT COMPLICATIONS SNOMED Code(s): 46385472 Comment: -restarting home mesalamine as this is low likelihood of causing pancreatitis per Dr. Jones -holding home budesonide given possibility of pancreatitis cause (3) DVT prophylaxis Current Visit: Yes Comment: - lovenox (4) Full code status Current Visit: Yes Status: Acute
[2019-03-10] MEDS: Enoxaparin(*) 40 MG/0.4 ML SYR SUBCUT SCH (20:03)
[2019-03-11] MEDS: oxyCODONE TAB* 5 MG TAB PO PRN ×4 (01:45→19:30)
[2019-03-11 06:36] LABS: Hematocrit 36 % (35-47); Hemoglobin 12.2 g/dL (12.0-16.0); Mean Corpuscular HGB Conc 34 g/dL (31-36); Mean Corpuscular Hemoglobin 28 pg (27-31); Mean Corpuscular Volume 83 fL (80-97); Mean Platelet Volume 6.6 fL (7.4-10.4); Platelet Count 567 10^3/uL (150-450); Red Blood Count 4.36 10^6 /uL (3.70-4.87); Red Cell Distribution Width 14 % (10-15); White Blood Count 13.4 10^3/uL (3.5-10.8)
[2019-03-11 06:55] LABS: BUN/Creatinine Ratio 2.9 (8-20); Calcium 9.2 mg/dL (8.6-10.3); EGFR African American 128.6 (>60); EGFR Non-African American 106.3 (>60); Magnesium 1.8 mg/dL (1.9-2.7); Potassium 4.1 mmol/L (3.5-5.0)
[2019-03-11] MEDS ORDERED: Magnesium Sulfate 1 GM IV* 1 GM/100 ML BAG IV ONE (08:36)
[2019-03-11] MEDS: PTO:Mesalamine (NF) 0.375 GM CAP PO SCH ×3 (08:40→17:27)
[2019-03-11] MEDS: D5LR 20 MEQ KCL 1000 ML BAG* 1,000 ML IV SCH ×2 (10:21→21:13)
--- NOTE | 2019-03-11 16:14 | PN ---
Subjective Date of Service: 03/11/19 Interval History: Pt reports significant pain with some clears for dinner last night, but now tolerating small amount of liquid clears for breakfast (had sips of juice). If she is able to tolerate a little more for lunch, she is up for trying regular food for dinner. She is worried about her lack of progress. Reports resolution of diarrhea since starting mesalamine yesterday. Objective Active Medications: Acetaminophen (Tylenol Tab*) 650 mg PO Q6H PRN PRN Reason: PAIN Last Admin: 03/10/19 07:25 Dose: 650 mg Enoxaparin Sodium (Lovenox(*)) 40 mg SUBCUT Q24H [facility] Last Admin: 03/10/19 20:03 Dose: 40 mg Potassium Cl/Dextrose/Lact Ringer's (D5lr 20 Meq Kcl 1000 Ml Bag*) 1,000 mls @ 100 mls/hr IV PER RATE [facility] Last Admin: 03/11/19 10:21 Dose: 100 mls/hr Mesalamine (Apriso (Nf)) 0.375 gm PO TID WITH MEALS [facility] Last Admin: 03/11/19 13:07 Dose: 0.375 gm Morphine Sulfate (Morphine Inj (Syringe))*) 1 mg IV Q4H PRN PRN Reason: PAIN - MILD Ondansetron HCl (Zofran Inj*) 4 mg IV Q4H PRN PRN Reason: NAUSEA/VOMITING Last Admin: 03/10/19 14:34 Dose: 4 mg Oxycodone HCl (Roxycodone Tab*) 5 mg PO Q4H PRN PRN Reason: PAIN - MODERATE Last Admin: 03/11/19 14:25 Dose: 5 mg Vital Signs - 8 hr 03/11/19 03/11/19 03/11/19 08:46 10:30 11:00 Temperature 98.3 F Pulse Rate 90 Respiratory 18 16 18 Rate Blood Pressure 118/75 (mmHg) O2 Sat by Pulse 100 Oximetry 03/11/19 14:25 Temperature Pulse Rate Respiratory 16 Rate Blood Pressure (mmHg) O2 Sat by Pulse Oximetry Oxygen Devices in Use Now: None Appearance: well appearing young woman in NAD Ears/Nose/Mouth/Throat: Clear Oropharnyx, Mucous Membranes Moist Neck: NL Appearance and Movements; NL JVP, Trachea Midline Respiratory: Symmetrical Chest Expansion and Respiratory Effort, Clear to Auscultation Cardiovascular: RRR Abdominal: NL Sounds; No Tenderness; No Distention, - - no guarding/rebound Extremities: No Edema Skin: No Rash or Ulcers Neurological: Alert and Oriented x 3 Result Diagrams: 03/11/19 05:35 03/11/19 05:35 Additional Lab and Data: Lab Results 03/09/19 03/09/19 03/09/19 Range/Units 01:40 02:18 02:18 WBC 12.8 H (3.5-10.8) 10^3/uL RBC 4.32 (3.70-4.87) 10^6 /uL Hgb 11.8 L (12.0-16.0) g/dL Hct 36 (35-47) % MCV 83 (80-97) fL MCH 27 (27-31) pg MCHC 33 (31-36) g/dL RDW 13 (10-15) % Plt Count 496 H (150-450) 10^3/uL MPV 6.6 L (7.4-10.4) fL Neut % (Auto) 68.4 % Lymph % (Auto) 17.3 % [place] % (Auto) 10.7 % Eos % (Auto) 3.0 % Baso % (Auto) 0.6 % Absolute Neuts (auto) 8.7 H (1.5-7.7) 10^3/ul Absolute Lymphs (auto) 2.2 (1.0-4.8) 10^3/ul Absolute Monos (auto) 1.4 H (0-0.8) 10^3/ul Absolute Eos (auto) 0.4 (0-0.6) 10^3/ul Absolute Basos (auto) 0.1 (0-0.2) 10^3/ul Absolute Nucleated RBC 0.0 10^3/ul Nucleated RBC % 0.0 Sodium 136 (135-145) mmol/L Potassium 3.7 (3.5-5.0) mmol/L Chloride 104 (101-111) mmol/L Carbon Dioxide 23 (22-32) mmol/L Anion Gap 9 (2-11) mmol/L BUN 6 (6-24) mg/dL Creatinine 0.59 (0.51-0.95) mg/dL Est GFR ( Amer) 151.5 (>60) Est GFR (Non-Af Amer) 125.2 (>60) BUN/Creatinine Ratio 10.2 (8-20) Glucose 123 H (70-100) mg/dL Calcium 9.2 (8.6-10.3) mg/dL Magnesium 2.1 (1.9-2.7) mg/dL Total Bilirubin 0.30 (0.2-1.0) mg/dL AST 12 L (13-39) U/L ALT 9 (7-52) U/L Alkaline Phosphatase 84 (34-104) U/L C-Reactive Protein 7.52 (<8.01) mg/L Total Protein 7.2 (6.4-8.9) g/dL Albumin 4.0 (3.2-5.2) g/dL Globulin 3.2 (2-4) g/dL Albumin/Globulin Ratio 1.3 (1-3) Triglycerides 42 mg/dL Amylase 156 H (29-103) U/L Lipase 949 H (11.0-82.0) U/L Beta HCG, Quant < 0.60 mIU/mL Urine Color Yellow Urine Appearance Cloudy Urine pH 5.0 (5-9) Ur Specific [place] 1.014 (1.010-1.030) Urine Protein Negative (Negative) Urine Ketones 1+ A (Negative) Urine Blood Negative (Negative) Urine Nitrate Negative (Negative) Urine Bilirubin Negative (Negative) Urine Urobilinogen Negative (Negative) Ur Leukocyte Esterase 3+ A (Negative) Urine WBC (Auto) 3+(>20/hpf) A (Absent) Urine RBC (Auto) Absent (Absent) Ur Squamous Epith Cells Present A (Absent) Urine Bacteria Absent (Absent) Urine Glucose Negative (Negative) Microbiology and Other Data: Microbiology 03/09/19 01:40 Urine Culture - Final Urine Chata Albicans Normal [place] Assess/Plan/Problems-Billing Assessment: 23W with ulcerative colitis presents with epigastric pain, found to have acute pancreatitis possibly from recent budesonide use. - Patient Problems (1) Acute pancreatitis Comment: CT abdomen with increased density of peripancreatic tissue; lipase of 949 at admission. Gallbladder ultrasound without gallstones or biliary duct dilation. Triglycerides wnl. Thought to be from budesonide use - while rare, the chronology fits well. - advanced diet as tolerated - cont IVF - pain control with oxy PO prn moderate pain and morphine IV prn for severe (2) Ulcerative colitis Comment: -restarting home mesalamine as this is low likelihood of causing pancreatitis per Dr. Jones -holding home budesonide given possibility of pancreatitis cause (3) DVT prophylaxis Current Visit: Yes Comment: - lovenox (4) Full code status Current Visit: Yes Status: Acute
[2019-03-11] MEDS: Enoxaparin(*) 40 MG/0.4 ML SYR SUBCUT SCH (19:25)
[2019-03-12] MEDS: oxyCODONE TAB* 5 MG TAB PO PRN ×3 (02:19→17:22)
[2019-03-12 06:03] LABS: Hematocrit 36 % (35-47); Hemoglobin 12.5 g/dL (12.0-16.0); Mean Corpuscular HGB Conc 34 g/dL (31-36); Mean Corpuscular Hemoglobin 28 pg (27-31); Mean Corpuscular Volume 83 fL (80-97); Mean Platelet Volume 6.3 fL (7.4-10.4); Platelet Count 590 10^3/uL (150-450); Red Blood Count 4.39 10^6 /uL (3.70-4.87); Red Cell Distribution Width 13 % (10-15)
[2019-03-12 06:20] LABS: BUN/Creatinine Ratio 6.6 (8-20); C Reactive Protein 15.58 mg/L (<8.01); Calcium 9.4 mg/dL (8.6-10.3); EGFR African American 145.8 (>60); EGFR Non-African American 120.5 (>60); Magnesium 1.9 mg/dL (1.9-2.7); Potassium 4.2 mmol/L (3.5-5.0)
[2019-03-12] MEDS: PTO:Mesalamine (NF) 0.375 GM CAP PO SCH ×3 (09:35→17:23)
[2019-03-12] MEDS: D5LR 20 MEQ KCL 1000 ML BAG* 1,000 ML IV SCH (10:40)
--- NOTE | 2019-03-12 16:15 | PN ---
Subjective Date of Service: 03/12/19 Interval History: Difficulty with clears yesterday. Discussed with GI and considered repeat CT scan, however pt was able to tolerate some scoops of yogurt and oatmeal today. Will likely DC tomorrow. No nausea or vomiting. No further episodes of diarrhea. Objective Active Medications: Acetaminophen (Tylenol Tab*) 650 mg PO Q6H PRN PRN Reason: PAIN Last Admin: 03/10/19 07:25 Dose: 650 mg Enoxaparin Sodium (Lovenox(*)) 40 mg SUBCUT Q24H [facility] Last Admin: 03/11/19 19:25 Dose: 40 mg Potassium Cl/Dextrose/Lact Ringer's (D5lr 20 Meq Kcl 1000 Ml Bag*) 1,000 mls @ 100 mls/hr IV PER RATE [facility] Last Admin: 03/12/19 10:40 Dose: 100 mls/hr Mesalamine (Apriso (Nf)) 0.375 gm PO TID WITH MEALS [facility] Last Admin: 03/12/19 12:52 Dose: 0.375 gm Morphine Sulfate (Morphine Inj (Syringe))*) 1 mg IV Q4H PRN PRN Reason: PAIN - MILD Ondansetron HCl (Zofran Inj*) 4 mg IV Q4H PRN PRN Reason: NAUSEA/VOMITING Last Admin: 03/10/19 14:34 Dose: 4 mg Oxycodone HCl (Roxycodone Tab*) 5 mg PO Q4H PRN PRN Reason: PAIN - MODERATE Last Admin: 03/12/19 09:34 Dose: 5 mg Vital Signs - 8 hr 03/12/19 09:34 Respiratory 14 Rate Oxygen Devices in Use Now: None Appearance: well appearing thin young woman, less anxious, NAD, alert and interactive Ears/Nose/Mouth/Throat: Clear Oropharnyx, Mucous Membranes Moist Neck: NL Appearance and Movements; NL JVP, Trachea Midline Respiratory: Symmetrical Chest Expansion and Respiratory Effort, Clear to Auscultation Cardiovascular: NL Sounds; No Murmurs; No JVD, RRR Abdominal: NL Sounds; No Tenderness; No Distention, No Hepatosplenomegaly Extremities: No Edema Skin: No Rash or Ulcers Neurological: Alert and Oriented x 3, NL Sensation, NL Muscle Strength and Tone Result Diagrams: 03/12/19 05:42 03/12/19 05:42 Additional Lab and Data: Lab Results 03/09/19 03/09/19 03/09/19 Range/Units 01:40 02:18 02:18 WBC 12.8 H (3.5-10.8) 10^3/uL RBC 4.32 (3.70-4.87) 10^6 /uL Hgb 11.8 L (12.0-16.0) g/dL Hct 36 (35-47) % MCV 83 (80-97) fL MCH 27 (27-31) pg MCHC 33 (31-36) g/dL RDW 13 (10-15) % Plt Count 496 H (150-450) 10^3/uL MPV 6.6 L (7.4-10.4) fL Neut % (Auto) 68.4 % Lymph % (Auto) 17.3 % [place] % (Auto) 10.7 % Eos % (Auto) 3.0 % Baso % (Auto) 0.6 % Absolute Neuts (auto) 8.7 H (1.5-7.7) 10^3/ul Absolute Lymphs (auto) 2.2 (1.0-4.8) 10^3/ul Absolute Monos (auto) 1.4 H (0-0.8) 10^3/ul Absolute Eos (auto) 0.4 (0-0.6) 10^3/ul Absolute Basos (auto) 0.1 (0-0.2) 10^3/ul Absolute Nucleated RBC 0.0 10^3/ul Nucleated RBC % 0.0 Sodium 136 (135-145) mmol/L Potassium 3.7 (3.5-5.0) mmol/L Chloride 104 (101-111) mmol/L Carbon Dioxide 23 (22-32) mmol/L Anion Gap 9 (2-11) mmol/L BUN 6 (6-24) mg/dL Creatinine 0.59 (0.51-0.95) mg/dL Est GFR ( Amer) 151.5 (>60) Est GFR (Non-Af Amer) 125.2 (>60) BUN/Creatinine Ratio 10.2 (8-20) Glucose 123 H (70-100) mg/dL Calcium 9.2 (8.6-10.3) mg/dL Magnesium 2.1 (1.9-2.7) mg/dL Total Bilirubin 0.30 (0.2-1.0) mg/dL AST 12 L (13-39) U/L ALT 9 (7-52) U/L Alkaline Phosphatase 84 (34-104) U/L C-Reactive Protein 7.52 (<8.01) mg/L Total Protein 7.2 (6.4-8.9) g/dL Albumin 4.0 (3.2-5.2) g/dL Globulin 3.2 (2-4) g/dL Albumin/Globulin Ratio 1.3 (1-3) Triglycerides 42 mg/dL Amylase 156 H (29-103) U/L Lipase 949 H (11.0-82.0) U/L Beta HCG, Quant < 0.60 mIU/mL Urine Color Yellow Urine Appearance Cloudy Urine pH 5.0 (5-9) Ur Specific [place] 1.014 (1.010-1.030) Urine Protein Negative (Negative) Urine Ketones 1+ A (Negative) Urine Blood Negative (Negative) Urine Nitrate Negative (Negative) Urine Bilirubin Negative (Negative) Urine Urobilinogen Negative (Negative) Ur Leukocyte Esterase 3+ A (Negative) Urine WBC (Auto) 3+(>20/hpf) A (Absent) Urine RBC (Auto) Absent (Absent) Ur Squamous Epith Cells Present A (Absent) Urine Bacteria Absent (Absent) Urine Glucose Negative (Negative) Microbiology and Other Data: Microbiology 03/09/19 01:40 Urine Culture - Final Urine Chata Albicans Normal [place] Assess/Plan/Problems-Billing Assessment: 23W with ulcerative colitis presents with epigastric pain, found to have acute pancreatitis possibly from recent budesonide use. - Patient Problems (1) Acute pancreatitis Comment: CT abdomen with increased density of peripancreatic tissue; lipase of 949 at admission. Gallbladder ultrasound without gallstones or biliary duct dilation. Triglycerides wnl. Thought to be from budesonide use - while rare, the chronology fits well. - advancing to regular diet - pain control with oxy PO prn moderate pain and morphine IV prn for severe (2) Ulcerative colitis Comment: -restarting home mesalamine as this is low likelihood of causing pancreatitis per Dr. Jones -holding home budesonide given possibility of pancreatitis cause (3) DVT prophylaxis Current Visit: Yes Comment: - lovenox (4) Full code status Current Visit: Yes Status: Acute Status and Disposition: May go home 03/13 if requiring less opioids and able to eat more than a few spoonfuls.
[2019-03-12] MEDS: Enoxaparin(*) 40 MG/0.4 ML SYR SUBCUT SCH (19:58)
[2019-03-13] MEDS: oxyCODONE TAB* 5 MG TAB PO PRN ×2 (03:51→17:37)
[2019-03-13] MEDS: Acetaminophen TAB* 325 MG PO PRN (09:15)
[2019-03-13] MEDS: PTO:Mesalamine (NF) 0.375 GM CAP PO SCH ×3 (09:16→17:37)
[2019-03-13 16:37] VITALS: BP 101/68
--- NOTE | 2019-03-13 16:49 | DS ---
CC: Mari Mead MD; Dr. Deana Lcokett at [facility] DISCHARGE SUMMARY: DATE OF ADMISSION: 03/09/19 DATE OF DISCHARGE: 03/13/19 PRIMARY CARE PHYSICIAN: Mari Mead MD SECRETARY BOARD OF COMMISSIONERS: Dr. Deana Lockett at [facility]. PRIMARY DIAGNOSIS: Acute pancreatitis. SECONDARY DIAGNOSIS: Ulcerative colitis. CONSULTS: Gastroenterology, Dr. Brower and Dr. Rodney. DISCHARGE MEDICATIONS: 1. Mesalamine 0.375 three times a day. 2. Oxycodone 5 mg up to twice a day as needed for pain, 10 tabs dispersed. HISTORY OF PRESENT ILLNESS: Ms. Brownlee is a 23-year-old woman with a history of ulcerative colitis with recent exacerbation. During which time, she stated that she lost 10 pounds and was started on budesonide. This was approximately 1 week ago. She stated 2 days prior to presentation, she has been having epigastric pain that is different from her chronic ulcerative colitis pain. She denies any nausea or vomiting. Her bowels have been normalizing since she has been on budesonide, but before she started budesonide, she had been having 3 to 4 loose bowel movements per day with blood in them. HOSPITAL COURSE: In the emergency room, lipase resulted in the 900s and CT showed question of pancreatitis. She was admitted to the hospital under observation for IV fluids and to advance diet as tolerated. By next morning, the patient was still reporting significant abdominal pain with small amounts of clear liquids, although her pain has been better than prior to presentation. GI was consulted who saw the patient and was concerned that budesonide may have been the cause of acute pancreatitis, although this is a rare side effect. The patient's triglycerides were normal. Right upper quadrant ultrasound was unremarkable and she was on no other medications that would cause acute pancreatitis and she denies recent alcohol use. GI recommended to advance diet and discharge patient ; however, by second and third days of admission, the patient was still having difficulty with clears, but was eventually able to progress to solid foods and yogurt and applesauce. On morning of discharge, the patient was able to have a full yogurt and drink milk and she was encouraged to attempt regular foods for lunch which she was able to, although she did not completely clear her tray. Given her ability to tolerate solid foods, ambulate, maintain hydration and decrease narcotic use, she was deemed safe to return home. On the day of discharge, 10-point review of systems was performed and negative as patient reports she is currently not experiencing abdominal pain at the time of interview. PHYSICAL EXAMINATION: Afebrile, heart rate 105, blood pressure 106/71, respiratory rate 16, oxygen saturation 98% on room air. In general, she is a well-appearing woman in no acute distress. Alert and interactive with parents at bedside. HEENT: OP clear. Moist mucous membranes. Heart: Regular rate and rhythm. No murmurs, gallops, or rubs. Lungs: Clear to auscultation bilaterally. Abdomen: Soft, nontender, nondistended, no guarding, no rebound. Extremities: Warm and well perfused, no edema. DIAGNOSTIC STUDIES AND IMAGING: Lipase 949, decreased to 148. Amylase 156. IgG4 within normal limits. Gallbladder ultrasound without stones or biliary ductal dilitation. Abdomen and pelvis CT with nonspecific findings in the abdomen. Motion artifact in the area of the pancreas, which causes blurring of the pancreatic margins with some increasing density to the peripancreatic soft tissues. No walled-off fluid collection is seen. This could represent early pancreatitis, suggests obtaining lipase for correlation. The distal transverse colon and proximal descending colon are collapsed with some thickening of the wall. This is a nonspecific finding, but could represent early colitis. There is, however , no significant mesenteric inflammation. DISCHARGE PLAN: The patient is to follow up closely with her PCP and her gastrointestinal specialist, Dr. Deana Lockett at [facility]. She is to continue to maintain adequate hydration with water and liquids with solute such as a broth. She was educated to use her oxycodone sparingly, but if she is having progression of pain or new vomiting, fevers, or worsening abdominal pain, then she should return to the emergency room for higher level of care. She is to resume activity as tolerated. This discharge plan and her return precautions were explained to her parents as well. DISPOSITION: Home. CONDITION: Improved. TIME SPENT: Approximately 60 minutes were spent on discharge of this patient, more than half of which was spent with care and coordination at bedside for interview and exam. [id number]/CPS #: [id number]
== END 2019-03-13 19:55 | disposition home or self-care (01) | DRG 439 ==
LOC: ED 22:39 → MED 03-09 05:30 → OBSVTOIN 03-10 14:00
PROVIDERS: ADMIT Internal Medicine; ATTEND Internal Medicine
DX: K85.90 Acute pancreatitis without necrosis or infection, unspecified (principal); K51.90 Ulcerative colitis, unspecified, without complications; Z80.0 Family history of malignant neoplasm of digestive organs; Z72.89 Other problems related to lifestyle
CPT/HCPCS: 36415; 74177; 76705; 80048; 80053; 81003; 81015; 82150; 82784; 82787; 83690; 83735; 84478; 84702; 85025; 85027; 86140; 87086; 87106; 99284; A9270-GY; G0378; J1650; J2270; J2405; J2765; J3475; Q9967